=== PATIENT | male | born 1995 | race Hispanic/Latino ===

== ENCOUNTER 2017-07-02 11:35 | Emergency (ER) | payer BC ==
[2017-07-02 11:44] VITALS: RESP 18
--- NOTE | 2017-07-02 12:26 | C.PDOC ---
History Of Present Illness 21-year-old male, presents to the emergency department with complaints of right ankle swelling and pain s/p inversion injury while playing basketball this morning. Patient states he took Advil at home with minimal relief, prompting visit. Patient denies any numbness/weakness, other injuries. Time Seen by Provider: 07/02/17 11:45 Chief Complaint (Nursing): Lower Extremity Problem/Injury History Per: Patient History/Exam Limitations: no limitations Past Medical History Reviewed: Historical Data, Nursing Documentation, Vital Signs Vital Signs: Last Vital Signs Temp 98.2 F 07/02/17 12:54 Pulse 78 07/02/17 12:54 Resp 18 07/02/17 12:54 BP 128/72 07/02/17 12:54 Pulse Ox 98 07/02/17 15:30 Family History: States: No Known Family Hx - Social History Hx Alcohol Use: Yes Hx Substance Use: No Review Of Systems Except As Marked, All Systems Reviewed And Found Negative. Musculoskeletal: Positive for: Foot Pain (right) Neurological: Negative for: Weakness, Numbness Physical Exam - Physical Exam Appears: Non-toxic, No Acute Distress Skin: Normal Color, Warm, Dry, No Rash Head: Atraumatic, Normacephalic Eye(s): bilateral: PERRL Nose: Normal Oral Mucosa: Moist Lips: Normal Appearing Neck: Normal ROM Respiratory: No Accessory Muscle Use (no acute respiratory distress) Extremity: Tenderness, Capillary Refill (< 2 sec), No Deformity, Other ( moderate right lateral malleolus swelling and tenderness) Extremity: Bilateral: Normal Color And Temperature Pulses: Left Dorsalis Pedis: Normal, Right Dorsalis Pedis: Normal Neurological/Psych: Oriented x3, Normal Speech, Normal Motor, Normal Sensation Gait: Steady ED Course And Treatment O2 Sat by Pulse Oximetry: 98 (RA) Pulse Ox Interpretation: Normal Medical Decision Making Medical Decision Making: Plan: * Tylenol * R ankle/tib-fib XR * Reassess and Disposition Patient has crutches already and histopathology technician applied air cast. Disposition - Disposition Referrals: [facility] [Outside] Disposition: HOME/ ROUTINE Disposition Time: 12:22 Condition: GOOD Additional Instructions: Follow up with the medical doctor within 2-3 days without fail. Return if worsened. Prescriptions: Naproxen [Naprosyn] 500 mg PO BID #20 tab Instructions: Ankle Sprain Forms: [facility] (Faroese), Work Excuse - Clinical Impression Clinical Impression: Ankle sprain - Scribe Statement The provider has reviewed the documentation as recorded by the Scribe (Enedina Killian) All medical record entries made by the Scribe were at my direction and personally dictated by me. I have reviewed the chart and agree that the record accurately reflects my personal performance of the history, physical exam, medical decision making, and the department course for this patient. I have also personally directed, reviewed, and agree with the discharge instructions and disposition.
[2017-07-02 12:54] VITALS: BP 128/72; PULSE 78; TEMP 98.2
--- NOTE | 2017-07-02 13:02 | RAD ---
PROCEDURE: Right Ankle Radiographs. HISTORY: ankle injury COMPARISON: None FINDINGS: BONES: No acute fracture or destructive bony lesion identified. Small accessory ossicle is seen inferior to the medial malleolus. JOINTS: Normal. No osteoarthritis. Ankle mortise maintained. Talar dome intact SOFT TISSUES: Prominent lateral malleolar soft tissue edema. OTHER FINDINGS: None. IMPRESSION: No acute fracture, subluxation or dislocation. Prominent lateral malleolar soft tissue edema encountered.
--- NOTE | 2017-07-02 13:02 | RAD ---
PROCEDURE: Radiographs of the right tibia and fibula. HISTORY: injury, twisting COMPARISON: None available. TECHNIQUE: Frontal and lateral views obtained. FINDINGS: BONES: No fracture or destructive lesion. JOINT SPACES: Unremarkable. OTHER FINDINGS: Prominent soft tissue overlies lateral malleolus incidentally. IMPRESSION: No fracture of the right tibia and fibula. Incidental prominent edema overlies the lateral malleolus.
[2017-07-02 15:31] VITALS: O2SAT 98
== END 2017-07-02 12:55 | disposition home or self-care (01) ==
LOC: C.ER 11:35
DX: S93.401A Sprain of unspecified ligament of right ankle, initial encounter (principal); X50.9XXA Other and unspecified overexertion or strenuous movements or postures, initial encounter; Y93.67 Activity, basketball